=== PATIENT | male | born 1995 | race Caucasian/White ===

== ENCOUNTER 2020-05-14 15:46 | Emergency (ER) | payer SELFPAY ==
--- NOTE | ~2020-05-14 | XR_ITS ---
EXAMINATION: XR foot LT min 3V DATE: 05/14/2020 16:13 INDICATION: Left heel pain post fall from ladder 2 months prior TECHNIQUE: Dorsoplantar, two oblique and lateral views of the left foot were obtained. COMPARISON: 10/13/2010 FINDINGS: Borderline hallux valgus. Alignment is otherwise normal. There is linear band of sclerosis projecting over the posterior tuberosity of the calcaneus which is new since the prior study. No evident cortic al disruption. Mild osteoarthritis at the first metatarsophalangeal joint. Soft tissues are unremarka ble. No left ankle joint effusion. IMPRESSION: 1. Linear sclerosis within the posterior tuberosity of the calcaneus without evident cortical disrupt ion which could represent a trabecular fracture line to be seen with stress injury however given prov ided history could be due to more discrete impaction injury. Reviewed, dictated and finalized at location A. IMPRESSION: 1. Linear sclerosis within the posterior tuberosity of the calcaneus without ev ident cortical disruption which could represent a trabecular fracture line to b e seen with stress injury however given provided history could be due to more d iscrete impaction injury.
--- NOTE | 2020-05-14 15:49 | ED.GENADULT ---
HPI - General Adult General Chief complaint: Extremity Injury, Lower Stated complaint: lt foot heel pain Time Seen by Provider: 05/14/20 16:00 Source: patient Mode of arrival: ambulatory Limitations: no limitations History of Present Illness HPI narrative: 25-year-old male patient presents to the [facility] with complaints of left heel pain for the past month and a half. Patient states about a month and a half ago he was helping move some furniture and fell off a ledge that was approximately 3 feet high. Patient states that since then he has been having some left foot and heel pain. 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 Patient states he did get some new boots for the job and states that now he has having left heel pain since being on the foot more often. Patient denies taking anything for the pain. Denies using any types of inserts. Patient states he had to quit that job due to the pain in his heel and being unable to walk for long periods. Denies any numbness or tingling to the toes of the foot. Denies any ankle pain. Related Data Home Medications Medication Instructions Recorded Confirmed No Home Medications 05/14/20 05/14/20 Allergies Allergy/AdvReac Type Severity Reaction Status Date / Time Penicillins Allergy Mild Other Verified 05/14/20 15:53 Review of Systems Review of Systems: Narrative: CONSTITUTIONAL: Denies fever, chills, or sweats. EYES: Denies visual changes, redness, or discharge. ENT: Denies rhinorrhea, congestion, sore throat, or otalgia. CARDIOVASCULAR: Denies chest pain, palpitations, or edema. RESPIRATORY: Denies cough or dyspnea. GASTROINTESTINAL: Denies abdominal pain, nausea, vomiting, or diarrhea. GENITOURINARY: Denies dysuria or hematuria. SKIN: Denies rash or itching. MUSCULOSKELETAL: Denies back pain, joint pain, or myalgia. Positive left heel pain NEUROLOGIC: Denies headache, numbness, or weakness. PSYCHIATRIC: Denies anxiety or depression. PMFSH Comments At the time of my signature I agree with nursing past medical history, surgical, social, and family history. There is no relevant family history pertinent to the presenting complaint. Exam Narrative: Exam Narrative: GENERAL: Well-appearing, well-nourished, and in no acute distress. HEAD: Normocephalic, atraumatic. EYES: PERRLA and EOMI. ENT: Nares clear, no rhinorrhea or epistaxis. Mucous membranes moist. NECK: Supple. No lymphadenopathy CHEST: Clear to auscultation. No respiratory distress. HEART: Regular rate and rhythm. No murmur heard. Normal peripheral pulses. ABDOMEN: Soft, nontender, nondistended, normal active bowel sounds. EXTREMITIES: Patient able to bear weight and ambulate without pain. No surface trauma, ecchymosis, erythema, lesions, ulcers or break in skin integrity. The L foot is without obvious asymmetry or deformity when compared to the R foot. No bony step-off, nontender to palpation over the toes, midfoot or hindfoot or sole. Normal plantar/dorsiflexion, inversion/eversion. Distal motor and neurovascular status are intact SKIN: Warm, dry, no rash. NEURO: No focal deficits. Alert and oriented x3. Course Reevaluation(s) Reevaluation #1: Reevaluated patient after x-ray resulted. Discussed with patient it does look like he possibly did fracture his calcaneus on the left foot whenever he had injury about a month and a half ago. Discussed with him it does appear that he still has a stress fracture there and probably has not quite healed completely. Discussed with him we are going go ahead and put him in an Ortho shoe and I will order him in Ortho boot and I need him to follow-up with the orthopedic surgeon for further evaluation and treatment. Discussed with him that we will go ahead and refer him to Dr. mcclure who is the Ortho doctor section [employer] property manager today and that
[2020-05-14 15:54] VITALS: BP 136/92; PULSE 86; RESP 16; TEMP 36.4; O2SAT 99
== END 2020-05-14 16:46 | disposition home or self-care (01) ==
PROVIDERS: Emergency Provider Nurse Practitioner Family
DX: M84.375A Stress fracture, left foot, initial encounter for fracture (principal); X50.9XXA Other and unspecified overexertion or strenuous movements or postures, initial encounter
CPT/HCPCS: 73630; 99203; G0463